=== PATIENT | female | born 1990 | race Caucasian/White ===

== ENCOUNTER → 2022-04-10 09:57 | Outpatient (RCR) | payer OTHER, SELFPAY ==
[2020-05-03 07:01] LABS: COVID-19 Test Negative (Negative)
[2020-05-13 10:01] LABS: COVID-19 Test Negative (Negative)
[2020-05-17 15:22] LABS: COVID-19 Test Negative (Negative); IDNOW Serial# 55D5AD1C
[2020-06-10 10:01] LABS: SARS-COV-2 PCR UMBRL Not Detected
== END | disposition home or self-care (01) ==
LOC: HO.EMPCOV 05-03 06:38
PROVIDERS: Visit Provider Internal Medicine
DX: Z20.828 Contact with and (suspected) exposure to other viral communicable diseases (principal)
CPT/HCPCS: 87635; C9803; U0003